=== PATIENT | male | born 1940 | race Caucasian/White ===

== ENCOUNTER 2021-02-09 14:09 | Emergency (ER) | payer MEDICARE, MEDICAID ==
[~2021-02-09] VITALS: Ht 175.3 cm; Wt 102.3 kg
--- NOTE | 2021-02-09 14:37 | NUR ---
Pt was given 50 of Fentanyl by EMS en route to ER. He desaturated to 87% during triage. He was started on 2L of O2. Pt O2 back to 97%. He is A&Ox4.
[2021-02-09] MEDS ORDERED: ondansetron/PF 4mg/2ml inj IV ONE (15:10)
[2021-02-09] MEDS ORDERED: fentaNYL/PF 50MCG/1 ML 2ML syringe IV ONE (15:10)
--- NOTE | 2021-02-09 16:00 | NUR ---
50 of Fentanyl given by RN. Patient reports "some improvement". Pt no longer on NC O2 supply. Oxygen saturation at 97% on RA. Pt A&Ox4.
[2021-02-09] MEDS ORDERED: ONDA4TAB6 PO (16:32)
[2021-02-09] MEDS ORDERED: HYDR-3964 PO (16:32)
[2021-02-09] MEDS ORDERED: METH-797 PO (16:32)
[2021-02-09] MEDS ORDERED: WALKERFR (16:38)
[2021-02-09] MEDS ORDERED: HYDROcodone/acetaminophen 10/325mg tab PO ONE (16:40)
--- NOTE | 2021-02-09 17:51 | NUR ---
[facility] CALLED FOR TRANSPORT, ETA [phone]
[2021-02-09 20:57] VITALS: BP 143/72
== END 2021-02-09 19:33 | disposition home or self-care (01) ==
LOC: ER 14:10
DX: S32.020A Wedge compression fracture of second lumbar vertebra, initial encounter for closed fracture (principal); M25.511 Pain in right shoulder; M25.551 Pain in right hip; W18.39XA Other fall on same level, initial encounter; Y93.89 Activity, other specified; Y92.89 Other specified places as the place of occurrence of the external cause; Y99.8 Other external cause status
CPT/HCPCS: 72131; 72192; 96374; 96375; 99285; J2405; J3010; 96376

== ENCOUNTER 2021-05-06 14:24 | Emergency (ER) | payer MEDICARE, MEDICAID ==
[~2021-05-06] VITALS: Ht 175.3 cm; Wt 104.1 kg
[~2021-05-06 14:24] MED LIST: METH-797 PO; ONDA4TAB6 PO; WALKERFR
[2021-05-06] MEDS ORDERED: HYDROcodone/acetaminophen 10/325mg tab PO ONE ×2 (14:50→15:00)
[2021-05-06] MEDS ORDERED: HYDR-3965 PO (15:26)
[2021-05-06 16:01] VITALS: BP 144/79
== END 2021-05-06 16:43 | disposition home or self-care (01) ==
LOC: ER 14:24
DX: S22.31XA Fracture of one rib, right side, initial encounter for closed fracture (principal); R07.81 Pleurodynia; Z79.899 Other long term (current) drug therapy; W18.30XA Fall on same level, unspecified, initial encounter; Y93.89 Activity, other specified; Y92.89 Other specified places as the place of occurrence of the external cause; Y99.8 Other external cause status
CPT/HCPCS: 71101; 99284

== ENCOUNTER 2021-06-09 17:45 | Inpatient (IN) | payer MEDICARE, MEDICAID ==
[~2021-06-09] VITALS: Ht 175.3 cm; Wt 95.5 kg
[2021-06-09 18:18] LABS: BASOPHILS % (AUTO) 0.2 % (0-1); EOSINOPHILS % (AUTO) 0 % (0-6); LYMPHOCYTES # (AUTO) 0.9 X10'3 (1.1-4.8); LYMPHOCYTES % (AUTO) 13.3 % (21-51); MEAN CORPUSCULAR HEMOGLOBIN 29.9 PG (27.0-31.0); MEAN CORPUSCULAR HGB CONC 32.9 g/dL (33.0-36.5); MEAN CORPUSCULAR VOLUME 90.9 FL (78-98); MEAN PLATELET VOLUME 8.5 FL (7.4-10.4); MONOCYTES # (AUTO) 0.8 X10'3 (0-0.9); MONOCYTES % (AUTO) 11.5 % (2-12); NEUTROPHILS # (AUTO) 5.3 X10'3 (1.8-7.7); PLATELET COUNT 326 X10'3 (140-440); RED CELL DISTRIBUTION WIDTH 14.8 % (11.5-14.5); WHITE BLOOD COUNT 7.1 X10'3 (4.5-11.0)
[2021-06-09 18:24] LABS: HEMATOCRIT 16.4 % (42.0-52.0); HEMOGLOBIN 5.4 g/dl (14.0-17.9)
[2021-06-09] MEDS ORDERED: normal saline 1000ML IV soln IV ONE (18:25)
[2021-06-09] MEDS ORDERED: pantoprazole 40 MG vial IV ONE (18:30)
[2021-06-09 18:35] LABS: ALANINE AMINOTRANSFERASE 28 U/L (12-78); ALBUMIN 2.9 G/DL (3.4-5.0); ALBUMIN/GLOBULIN RATIO 0.8 (1.1-1.5); ALKALINE PHOSPHATASE 100 IU/L (46-116); ANION GAP 12 (8-16); ASPARTATE AMINO TRANSFERASE 40 U/L (10-37); BILIRUBIN,TOTAL 0.5 MG/DL (0.1-1.0); BLOOD UREA NITROGEN 56 MG/DL (7-18); BUN/CREATININE RATIO 43.1 (5.4-32.0); CALCIUM 8.4 MG/DL (8.5-10.1); CHLORIDE 100 MMOL/L (99-107); GLUCOSE 175 MG/DL (70-104); POTASSIUM 3.6 MMOL/L (3.5-5.1); SODIUM 138 MMOL/L (135-145); TOTAL CARBON DIOXIDE 26.4 MMOL/L (24-32); TOTAL PROTEIN 6.5 G/DL (6.4-8.2); eGFR 53 ML/MIN
[2021-06-09] MEDS ORDERED: furosemide 10 MG/1 ML 10ml inj IV ONE (18:45)
[2021-06-09] MEDS ORDERED: furosemide 40mg/4ml inj IV ONE (18:55)
[2021-06-09] MEDS: pantoprazole 40MG/NS 100ML BAG 100 ML IV SCH (18:57)
[2021-06-09 19:33] LABS: CLARITY,URINE CLEAR (Clear); COLOR,URINE YELLOW (Yellow); GLUCOSE, URINE NEGATIVE (Neg); KETONES,URINE NEGATIVE (Neg); LEUKOCYTE ESTERASE ,URINE NEGATIVE (Neg); NITRITES, URINE NEGATIVE (Neg); OCCULT BLOOD,URINE NEGATIVE (Neg); PROTEIN,URINE NEGATIVE (Neg); UA COLLECTION TYPE CLN CATCH MIDSTREAM; UROBILINOGEN,URINE 0.2 E.U/dL (0.2-1.0)
--- NOTE | 2021-06-09 19:43 | NUR ---
FOUNTAIN CATH PLACED. 1900 ML URINE OUT.
[2021-06-09] MEDS ORDERED: potassium Cl 20 mEq SR tablet PO PRN (19:55)
[2021-06-09] MEDS ORDERED: magnesium 4gm in 100ml NS 100 ML IV PRN (19:55)
[2021-06-09] MEDS ORDERED: potassium Cl 40MEQ/1/2NS 520ml 520 ML IV PRN ×2 (19:55)
[2021-06-09] MEDS ORDERED: magnesium 2GM in 50ml NS 50 ML IV PRN (19:55)
[2021-06-09] MEDS ORDERED: magnesium Cl slow-release 64mg tablet PO PRN (19:55)
[2021-06-09] MEDS ORDERED: metoclopramide 5 mg/ml inj IV PRN (19:55)
[2021-06-09] MEDS ORDERED: ondansetron/PF 4mg/2ml inj IV PRN (19:55)
[2021-06-09] MEDS ORDERED: ESOM40CA54 PO (20:05)
[2021-06-09] MEDS ORDERED: DABI150C PO (20:05)
[2021-06-09] MEDS ORDERED: FURO40TA4 PO (20:05)
[2021-06-09] MEDS ORDERED: SITA25TA3 PO (20:05)
[2021-06-09] MEDS ORDERED: HYDR-3972 PO (20:05)
[2021-06-09] MEDS ORDERED: METF-900 PO (20:05)
[2021-06-09] MEDS ORDERED: ROSU10TA28 PO (20:05)
[2021-06-09] MEDS ORDERED: FINA5TAB11 PO (20:05)
[2021-06-09] MEDS ORDERED: CEPH-585 PO (20:05)
[2021-06-09] MEDS ORDERED: HYDR12.55 PO (20:05)
[2021-06-09] MEDS ORDERED: FLO0.4C PO (20:05)
[2021-06-09] MEDS ORDERED: PRAM0.5T12 PO (20:05)
[2021-06-09 20:57] VITALS: BP 125/58
[2021-06-09 21:20] VITALS: BP 121/60
--- NOTE | 2021-06-09 22:40 | NUR ---
PER MD GIVE LASIX DOSE AFTER FIRST UNIT OF BLOOD TRANSFUSED
[2021-06-09 23:38] VITALS: BP 119/61
[2021-06-09] MEDS ORDERED: MESSAGE TO PHARMACY PO ONE (23:40)
[2021-06-09] MEDS ORDERED: dextrose 50%-water 50ml dispensing syringe IV PRN ×2 (23:40)
[2021-06-09] MEDS ORDERED: dextrose ORAL solution 15 GM/59 ML bottle PO PRN ×2 (23:40)
[2021-06-09] MEDS ORDERED: insulin Lispro (HumaLOG) vial - multi-dose SQ SCH (23:40)
[2021-06-09] MEDS ORDERED: glucagon, human recombinant 1mg kit SUBCUT PRN (23:40)
[2021-06-10] VITALS (19 sets, daily range): BP systolic 90–129; BP diastolic 47–80
[2021-06-10] MEDS: normal saline 1000ml 1,000 ML IV SCH ×2 (00:37→08:00)
--- NOTE | 2021-06-10 00:47 | NUR ---
paged pharmacy [phone] Gaetano Vargas: pt came from ED to the floor with no protonix gtt. could you please send up when you get a chance? thank you. mason [phone]
[2021-06-10 01:06] LABS: HEMOGLOBIN A1C 5.8 % (4.5-6.2)
[2021-06-10] MEDS: pantoprazole 40MG/NS 100ML BAG 100 ML IV SCH ×6 (03:37→18:28)
--- NOTE | 2021-06-10 03:40 | NUR ---
Gave 1 u PRBC to pt @ 0140, stayed with pt the first 15 minutes w/out rxn. VSS WNL. Transfusion ended @0340 with no rxn. Last vitals taken were in range an pt had no complaint.
--- NOTE | 2021-06-10 06:35 | NUR ---
Problems reprioritized. Patient report given, questions answered & plan of care reviewed with
[2021-06-10 06:56] LABS: BASOPHILS % (AUTO) 0.4 % (0-1); EOSINOPHILS % (AUTO) 0.2 % (0-6); HEMATOCRIT 22.1 % (42.0-52.0); HEMOGLOBIN 7.8 g/dl (14.0-17.9); LYMPHOCYTES % (AUTO) 12.9 % (21-51); MEAN CORPUSCULAR HEMOGLOBIN 30.3 PG (27.0-31.0); MEAN CORPUSCULAR HGB CONC 35.1 g/dL (33.0-36.5); MEAN CORPUSCULAR VOLUME 86.5 FL (78-98); MEAN PLATELET VOLUME 8.4 FL (7.4-10.4); MONOCYTES # (AUTO) 0.9 X10'3 (0-0.9); NEUTROPHILS % (AUTO) 75.5 % (42-75); PLATELET COUNT 267 X10'3 (140-440); RED BLOOD COUNT 2.56 X10'6 (4.70-6.10); RED CELL DISTRIBUTION WIDTH 15.1 % (11.5-14.5); WHITE BLOOD COUNT 7.9 X10'3 (4.5-11.0)
[2021-06-10 07:12] LABS: ALBUMIN 2.7 G/DL (3.4-5.0); ANION GAP 11 (8-16); BLOOD UREA NITROGEN 39 MG/DL (7-18); BUN/CREATININE RATIO 35.5 (5.4-32.0); CALCIUM 8.4 MG/DL (8.5-10.1); CHLORIDE 105 MMOL/L (99-107); GLUCOSE 117 MG/DL (70-104); MAGNESIUM 1.9 MG/DL (1.5-2.4); POTASSIUM 3.2 MMOL/L (3.5-5.1); SODIUM 143 MMOL/L (135-145); TOTAL CARBON DIOXIDE 27.4 MMOL/L (24-32); eGFR 65 ML/MIN
[2021-06-10] MEDS: K and/or MAG REPLACEMENT MC SCH ×2 (08:00→20:00)
[2021-06-10] MEDS: tamsulosin 0.4mg capsule PO SCH (08:00)
[2021-06-10] MEDS: atorvastatin 20mg tablet PO SCH (08:20)
[2021-06-10] MEDS: finasteride 5mg tablet PO SCH (08:22)
[2021-06-10] MEDS: pramipexole 0.25mg tablet PO SCH ×3 (08:22→21:28)
[2021-06-10] MEDS ORDERED: LIDOcaine Viscous 15ml cup ONE (09:36)
[2021-06-10] MEDS ORDERED: MIDAZolam 1 MG/ML 5ML VIAL ONE (09:36)
[2021-06-10] MEDS ORDERED: fentaNYL/PF 50MCG/1 ML 2ML syringe ONE (09:36)
--- NOTE | 2021-06-10 11:37 | NUR ---
PAGER ID: [phone] MESSAGE: Kaylie [phone] Re: Gaetano [id number] back from GI Lab please call for results Addendum: 06/10/21 at 1154 by Sulma Mike RN Dr Fitzpatrick called back aware of EGD results. Received orders for Clear diet no reds and continue Protonix gtt./
--- NOTE | 2021-06-10 15:00 | NUR ---
Spoke to patients gregg Booth regarding who patient lives with and if anyone could come and see patient because he was feeling lonely. Patients son stated patient has been falling alot at home and his room mate is 80 years old and unable to help take care of patient. Patient also has an [facility] worker Sissy but they can not stay 24/7 and patient has been having alot of falls and the fire department has been contacted often to help assist patient back into wheelchair. Contacted patients donn Verde and she states that she has been in contact with Dr Cole office and his office manager receptionist Estella about getting patient to [facility]. The referral was sent to [facility] last week and the daughter Mehreen was just notified they should have a bed for the patient. Donn Heard has been in contact with Margarita Flowers the Liason at [facility]. I notified Nancy our leather case finisher and she will contact Margarita tomorrow.
--- NOTE | 2021-06-10 16:42 | NUR ---
Left message on voicemail for wound care consult
--- NOTE | 2021-06-10 18:22 | NUR ---
Problems reprioritized. Patient report given, questions answered & plan of care reviewed with Gayatri MATHIS.
--- NOTE | 2021-06-10 18:46 | NUR ---
Patient in room PCU 3016J. I have received report from Sulma and had the opportunity to ask questions and assume patient care.
[2021-06-10] MEDS: insulin glargine (Lantus) pen - multi-dose SQ SCH (21:00)
[2021-06-11] MEDS: normal saline 1000ml 1,000 ML IV SCH ×2 (00:12→22:00)
[2021-06-11 02:00] VITALS: BP 121/73
[2021-06-11 06:00] VITALS: BP 128/60
--- NOTE | 2021-06-11 06:51 | NUR ---
Problems reprioritized. Pt took out IV's and leads and will need another IV to cont. IVF. Patient report given, questions answered & plan of care reviewed with Shewit.
[2021-06-11] MEDS: atorvastatin 20mg tablet PO SCH (07:24)
[2021-06-11] MEDS: finasteride 5mg tablet PO SCH (07:24)
[2021-06-11] MEDS: pramipexole 0.25mg tablet PO SCH ×2 (07:24→21:51)
[2021-06-11] MEDS: tamsulosin 0.4mg capsule PO SCH (07:24)
[2021-06-11 07:31] LABS: BASOPHILS % (AUTO) 0.4 % (0-1); EOSINOPHILS % (AUTO) 0.5 % (0-6); HEMATOCRIT 24.1 % (42.0-52.0); LYMPHOCYTES # (AUTO) 0.8 X10'3 (1.1-4.8); LYMPHOCYTES % (AUTO) 9.9 % (21-51); MEAN CORPUSCULAR HEMOGLOBIN 29.4 PG (27.0-31.0); MEAN CORPUSCULAR VOLUME 89.1 FL (78-98); MEAN PLATELET VOLUME 8.4 FL (7.4-10.4); MONOCYTES # (AUTO) 0.8 X10'3 (0-0.9); NEUTROPHILS # (AUTO) 6.6 X10'3 (1.8-7.7); NEUTROPHILS % (AUTO) 79.2 % (42-75); PLATELET COUNT 277 X10'3 (140-440); RED BLOOD COUNT 2.71 X10'6 (4.70-6.10); RED CELL DISTRIBUTION WIDTH 15.8 % (11.5-14.5); WHITE BLOOD COUNT 8.3 X10'3 (4.5-11.0)
[2021-06-11 08:20] LABS: ALBUMIN 2.5 G/DL (3.4-5.0); ANION GAP 9 (8-16); BLOOD UREA NITROGEN 21 MG/DL (7-18); BUN/CREATININE RATIO 23.1 (5.4-32.0); CALCIUM 8.1 MG/DL (8.5-10.1); CHLORIDE 106 MMOL/L (99-107); CREATININE 0.91 MG/DL (0.60-1.10); GLUCOSE 117 MG/DL (70-104); MAGNESIUM 1.7 MG/DL (1.5-2.4); SODIUM 141 MMOL/L (135-145); TOTAL CARBON DIOXIDE 25.7 MMOL/L (24-32); eGFR 81 ML/MIN
[2021-06-11] MEDS: potassium Cl 20 mEq SR tablet PO PRN ×2 (09:32→11:00)
[2021-06-11 11:00] VITALS: BP 128/60
--- NOTE | 2021-06-11 16:49 | NUR ---
DR. ARMANDO paged regarding , patient name Sam Salter in PCU room 15 B , is still not discharged , we don't know where to send him , nothing is known about his living situationl. nursing home social worker has to work on that. he is confused and yelling loud. DELFINA ROMERO. [phone]
[2021-06-11 18:00] VITALS: BP 138/65
[2021-06-11] MEDS: K and/or MAG REPLACEMENT MC SCH (20:00)
[2021-06-11] MEDS: insulin glargine (Lantus) pen - multi-dose SQ SCH (21:00)
[2021-06-11 22:00] VITALS: BP 152/74
[2021-06-12 02:00] VITALS: BP 144/71
--- NOTE | 2021-06-12 06:30 | NUR ---
Pt refused VS check
--- NOTE | 2021-06-12 06:50 | NUR ---
Patient in room PCU 3015. I have received report from DELFINA Haskins and had the opportunity to ask questions and assume patient care.
[2021-06-12 07:37] LABS: BASOPHILS % (AUTO) 0.2 % (0-1); EOSINOPHILS % (AUTO) 0.6 % (0-6); HEMATOCRIT 26.8 % (42.0-52.0); HEMOGLOBIN 9.2 g/dl (14.0-17.9); LYMPHOCYTES # (AUTO) 0.7 X10'3 (1.1-4.8); LYMPHOCYTES % (AUTO) 7.7 % (21-51); MEAN CORPUSCULAR HEMOGLOBIN 30.4 PG (27.0-31.0); MEAN CORPUSCULAR HGB CONC 34.2 g/dL (33.0-36.5); MEAN CORPUSCULAR VOLUME 88.9 FL (78-98); MEAN PLATELET VOLUME 8.6 FL (7.4-10.4); MONOCYTES # (AUTO) 0.8 X10'3 (0-0.9); MONOCYTES % (AUTO) 9.4 % (2-12); NEUTROPHILS # (AUTO) 7.2 X10'3 (1.8-7.7); NEUTROPHILS % (AUTO) 82.1 % (42-75); PLATELET COUNT 287 X10'3 (140-440); RED BLOOD COUNT 3.02 X10'6 (4.70-6.10); RED CELL DISTRIBUTION WIDTH 16.4 % (11.5-14.5); WHITE BLOOD COUNT 8.7 X10'3 (4.5-11.0)
[2021-06-12 07:49] LABS: ALBUMIN 2.5 G/DL (3.4-5.0); ANION GAP 11 (8-16); BLOOD UREA NITROGEN 15 MG/DL (7-18); BUN/CREATININE RATIO 22.1 (5.4-32.0); CALCIUM 8.8 MG/DL (8.5-10.1); CHLORIDE 105 MMOL/L (99-107); CREATININE 0.68 MG/DL (0.60-1.10); GLUCOSE 118 MG/DL (70-104); MAGNESIUM 1.7 MG/DL (1.5-2.4); POTASSIUM 3.8 MMOL/L (3.5-5.1); SODIUM 141 MMOL/L (135-145); TOTAL CARBON DIOXIDE 25.5 MMOL/L (24-32); eGFR > 90 ML/MIN
[2021-06-12] MEDS: K and/or MAG REPLACEMENT MC SCH ×2 (08:00→20:00)
[2021-06-12] MEDS ORDERED: pantoprazole 40 MG vial IV SCH (09:00)
[2021-06-12 11:00] VITALS: BP 143/72
[2021-06-12] MEDS: tamsulosin 0.4mg capsule PO SCH (11:10)
[2021-06-12] MEDS: pantoprazole 40mg Tablet.DR PO SCH ×2 (11:11→21:12)
[2021-06-12] MEDS: finasteride 5mg tablet PO SCH (11:11)
[2021-06-12] MEDS: atorvastatin 20mg tablet PO SCH (11:11)
[2021-06-12] MEDS: pramipexole 0.25mg tablet PO SCH ×3 (11:11→21:13)
[2021-06-12 15:00] VITALS: BP 134/79
[2021-06-12 18:00] VITALS: BP 113/72
--- NOTE | 2021-06-12 18:20 | NUR ---
Problems reprioritized. Patient report given, questions answered & plan of care reviewed with DELFINA Arita.
[2021-06-12] MEDS: insulin glargine (Lantus) pen - multi-dose SQ SCH (21:00)
[2021-06-12 22:00] VITALS: BP 129/51
[2021-06-13 02:00] VITALS: BP 138/72
--- NOTE | 2021-06-13 03:44 | NUR ---
reviewed and edited SRN assessment
--- NOTE | 2021-06-13 06:23 | NUR ---
Problems reprioritized. Patient report given, questions answered & plan of care reviewed with DELFINA Velez.
[2021-06-13 06:30] LABS: BASOPHILS % (AUTO) 0.2 % (0-1); EOSINOPHILS # (AUTO) 0.1 X10'3 (0-0.9); EOSINOPHILS % (AUTO) 1.4 % (0-6); HEMATOCRIT 27.2 % (42.0-52.0); HEMOGLOBIN 9.1 g/dl (14.0-17.9); LYMPHOCYTES # (AUTO) 0.7 X10'3 (1.1-4.8); LYMPHOCYTES % (AUTO) 13.4 % (21-51); MEAN CORPUSCULAR HEMOGLOBIN 29.6 PG (27.0-31.0); MEAN CORPUSCULAR HGB CONC 33.4 g/dL (33.0-36.5); MEAN CORPUSCULAR VOLUME 88.5 FL (78-98); MEAN PLATELET VOLUME 8.4 FL (7.4-10.4); MONOCYTES # (AUTO) 0.6 X10'3 (0-0.9); MONOCYTES % (AUTO) 11.6 % (2-12); NEUTROPHILS # (AUTO) 3.8 X10'3 (1.8-7.7); NEUTROPHILS % (AUTO) 73.4 % (42-75); PLATELET COUNT 281 X10'3 (140-440); RED BLOOD COUNT 3.08 X10'6 (4.70-6.10); RED CELL DISTRIBUTION WIDTH 16.2 % (11.5-14.5); WHITE BLOOD COUNT 5.1 X10'3 (4.5-11.0)
--- NOTE | 2021-06-13 06:30 | NUR ---
Patient in room PCU 3015. I have received report from TRACEY MATHIS and had the opportunity to ask questions and assume patient care.
[2021-06-13 06:52] LABS: ALBUMIN 2.2 G/DL (3.4-5.0); ANION GAP 12 (8-16); BLOOD UREA NITROGEN 12 MG/DL (7-18); CALCIUM 8.4 MG/DL (8.5-10.1); CHLORIDE 104 MMOL/L (99-107); CREATININE 0.63 MG/DL (0.60-1.10); GLUCOSE 105 MG/DL (70-104); MAGNESIUM 1.7 MG/DL (1.5-2.4); POTASSIUM 3.4 MMOL/L (3.5-5.1); SODIUM 141 MMOL/L (135-145); TOTAL CARBON DIOXIDE 25.5 MMOL/L (24-32); eGFR > 90 ML/MIN
[2021-06-13] MEDS: tamsulosin 0.4mg capsule PO SCH (07:48)
[2021-06-13] MEDS: pantoprazole 40mg Tablet.DR PO SCH ×2 (07:48→20:34)
[2021-06-13] MEDS: atorvastatin 20mg tablet PO SCH (07:48)
[2021-06-13] MEDS: finasteride 5mg tablet PO SCH (07:49)
[2021-06-13] MEDS: pramipexole 0.25mg tablet PO SCH ×3 (07:49→20:33)
[2021-06-13] MEDS: K and/or MAG REPLACEMENT MC SCH ×2 (08:00→18:43)
[2021-06-13] MEDS ORDERED: potassium Cl 40MEQ/1/2NS 520ml 520 ML IV PRN (10:40)
[2021-06-13] MEDS ORDERED: magnesium 4gm in 100ml NS 100 ML IV PRN (10:40)
[2021-06-13] MEDS ORDERED: potassium Cl 20 mEq SR tablet PO PRN (10:40)
[2021-06-13 11:00] VITALS: BP 134/66
--- NOTE | 2021-06-13 13:41 | NUR ---
DR. ARMANDO PAGED: Sam Avila [phone]: PT REQUESTING TYLENOL FOR LOW BACK PAIN. MY I GET AN ORDER? THANKS [id number]
[2021-06-13] MEDS ORDERED: acetaminophen 325mg tablet PO PRN (13:45)
[2021-06-13 15:00] VITALS: BP 122/66
[2021-06-13 18:00] VITALS: BP 141/69
--- NOTE | 2021-06-13 18:07 | NUR ---
Problems reprioritized. Patient report given, questions answered & plan of care reviewed with TRACEY MATHIS.
[2021-06-13] MEDS: potassium Cl 20 mEq SR tablet PO PRN (20:33)
[2021-06-13 22:00] VITALS: BP 135/73
[2021-06-14 02:00] VITALS: BP 125/72
[2021-06-14 06:00] VITALS: BP 141/45
--- NOTE | 2021-06-14 06:11 | NUR ---
Problems reprioritized. Patient report given, questions answered & plan of care reviewed with DELFINA Melgar.
[2021-06-14 07:10] LABS: BASOPHILS % (AUTO) 0.4 % (0-1); EOSINOPHILS # (AUTO) 0.1 X10'3 (0-0.9); HEMATOCRIT 27.7 % (42.0-52.0); HEMOGLOBIN 9.1 g/dl (14.0-17.9); LYMPHOCYTES # (AUTO) 0.6 X10'3 (1.1-4.8); LYMPHOCYTES % (AUTO) 14.2 % (21-51); MEAN CORPUSCULAR HGB CONC 32.8 g/dL (33.0-36.5); MEAN CORPUSCULAR VOLUME 88.6 FL (78-98); MEAN PLATELET VOLUME 8.4 FL (7.4-10.4); MONOCYTES # (AUTO) 0.5 X10'3 (0-0.9); MONOCYTES % (AUTO) 12.5 % (2-12); NEUTROPHILS % (AUTO) 70.9 % (42-75); PLATELET COUNT 293 X10'3 (140-440); RED BLOOD COUNT 3.13 X10'6 (4.70-6.10); RED CELL DISTRIBUTION WIDTH 16.6 % (11.5-14.5); WHITE BLOOD COUNT 4.3 X10'3 (4.5-11.0)
[2021-06-14 07:24] LABS: ALBUMIN 2.2 G/DL (3.4-5.0); ANION GAP 11 (8-16); BLOOD UREA NITROGEN 10 MG/DL (7-18); BUN/CREATININE RATIO 13.5 (5.4-32.0); CALCIUM 8.2 MG/DL (8.5-10.1); CHLORIDE 103 MMOL/L (99-107); CREATININE 0.74 MG/DL (0.60-1.10); GLUCOSE 108 MG/DL (70-104); MAGNESIUM 1.4 MG/DL (1.5-2.4); POTASSIUM 3.7 MMOL/L (3.5-5.1); SODIUM 141 MMOL/L (135-145); TOTAL CARBON DIOXIDE 27.1 MMOL/L (24-32); eGFR > 90 ML/MIN
[2021-06-14] MEDS: K and/or MAG REPLACEMENT MC SCH ×2 (08:00→20:00)
[2021-06-14] MEDS: atorvastatin 20mg tablet PO SCH (08:31)
[2021-06-14] MEDS: pantoprazole 40mg Tablet.DR PO SCH ×2 (08:31→20:23)
[2021-06-14] MEDS: finasteride 5mg tablet PO SCH (08:31)
[2021-06-14] MEDS: tamsulosin 0.4mg capsule PO SCH (08:31)
[2021-06-14] MEDS: pramipexole 0.25mg tablet PO SCH ×3 (08:31→20:25)
[2021-06-14] MEDS: magnesium Cl slow-release 64mg tablet PO PRN ×2 (09:46→20:25)
--- NOTE | 2021-06-14 10:16 | NUR ---
Initial: Pt admitted w/ increasing weakness and s/p falls per EMR. Pt noted to have undergone EGD w/ findings of hiatal hernia and duodenal ulcer. Pt currently on Clear liquid diet w/ 100% intake on 06/11 though mostly refusing now. D/w RN about advancing diet to Regular if MD agreeable. Pt also noted w/ 2x2cm stage 3 wound on sacrococcygeal region. LBM 06/12. Limited nutrition interventions at this time given diet order, will continue to monitor and make recommendations as appropriate. Recs: 1. Advance to Regular diet if MD agreeable 2. When diet advanced to at least full liquids, Fabian shake BID BD 3. Monitor need for additional ONS once diet advances 4. Bowel care per rx 5. Weekly wts Addendum: 06/14/21 at [address] Amended: Links added.
--- NOTE | 2021-06-14 11:05 | NUR ---
PT REMOVED FOUNTAIN CATH. PT REFUSING TO HAVE NEW CATH PLACED AT THIS TIME. PT GIVEN URINAL AND TOLD TO URINATE INTO IT IF THEY FEEL THE NEED. WILL CONTINUE TO MONITOR.
--- NOTE | 2021-06-14 12:41 | NUR ---
DR. ARMANDO PAGED: Sam Marvin [phone]: CAN WE UPGRADE HIS DIET FROM CLEAR LIQUID? THANKS [phone]
[2021-06-14 15:00] VITALS: BP 122/62
[2021-06-14 18:00] VITALS: BP 143/77
--- NOTE | 2021-06-14 18:32 | NUR ---
Problems reprioritized. Patient report given, questions answered & plan of care reviewed with LENO MATHIS.
--- NOTE | 2021-06-14 21:30 | NUR ---
Pt has not voided since starting my shift. Urinal at bedside with verbal instructions to use it when having the urge to void. Pt refusing bladder scan to check for retention. pt is confused ; continue to reorient him and encourage him to stay in bed. Bed alarm in use.
[2021-06-14 22:00] VITALS: BP 102/66
--- NOTE | 2021-06-14 22:24 | NUR ---
Attempted to place the giron post bladder scan with urine retention of 696 ml; pt agitated and refused. Pt said no and that he will urinate. Pt reported that it hurts too much last time. Will continue to encourage pt to void.
--- NOTE | 2021-06-14 22:54 | NUR ---
Stage 2 noted to right gluteal fold; dressing clean and intact. Pt turns side to side PRN.
[2021-06-15 03:13] VITALS: BP 143/65
--- NOTE | 2021-06-15 03:29 | NUR ---
Pt still not voiding, continues to refuse Rick catheter to be inserted. Stand pt by the bed urinal in place, encourage pt to void.Still no urine
[2021-06-15 06:00] VITALS: BP 131/77
[2021-06-15 07:55] LABS: MAGNESIUM 1.6 MG/DL (1.5-2.4); POTASSIUM 3.1 MMOL/L (3.5-5.1)
[2021-06-15] MEDS: K and/or MAG REPLACEMENT MC SCH (08:00)
[2021-06-15] MEDS: finasteride 5mg tablet PO SCH (09:07)
[2021-06-15] MEDS: pramipexole 0.25mg tablet PO SCH ×2 (09:07→13:08)
[2021-06-15] MEDS: atorvastatin 20mg tablet PO SCH (09:07)
[2021-06-15] MEDS: pantoprazole 40mg Tablet.DR PO SCH (09:07)
[2021-06-15] MEDS: tamsulosin 0.4mg capsule PO SCH (09:07)
[2021-06-15] MEDS: potassium Cl 20 mEq SR tablet PO PRN (09:07)
[2021-06-15 11:00] VITALS: BP 127/64
[2021-06-15] MEDS ORDERED: LIDOcaine 2% 10ml TOPICAL JELLY (Urojet) MM ONE (12:35)
[2021-06-15 15:00] VITALS: BP 130/89
--- NOTE | 2021-06-15 15:56 | NUR ---
REPORT GIVEN TO BIRGIT MATHIS AT [facility]. AWAITING TRANSPORTATION.
--- NOTE | 2021-06-15 16:30 | NUR ---
PT TRANSFERRED TO [facility] AT 1630.
== END 2021-06-15 16:05 | DRG 377 ==
LOC: ER 17:46 → ED HOLD 19:58 → PCU 3S 06-10 00:01
PROVIDERS: ADMIT Internal Medicine; ATTEND Family Medicine
PROC: 30233N1 Transfusion of Nonautologous Red Blood Cells into Peripheral Vein, Percutaneous Approach (ICD-10-PCS; principal; 2021-06-09)
PROC: 0DB98ZX Excision of Duodenum, Via Natural or Artificial Opening Endoscopic, Diagnostic (ICD-10-PCS; 2021-06-10)
DX: K29.71 Gastritis, unspecified, with bleeding (principal); N17.0 Acute kidney failure with tubular necrosis; D50.0 Iron deficiency anemia secondary to blood loss (chronic); E11.9 Type 2 diabetes mellitus without complications; E87.6 Hypokalemia; Z20.822 Contact with and (suspected) exposure to COVID-19; R29.6 Repeated falls; K31.89 Other diseases of stomach and duodenum; K44.9 Diaphragmatic hernia without obstruction or gangrene; E78.5 Hyperlipidemia, unspecified; F03.90 Unspecified dementia, unspecified severity, without behavioral disturbance, psychotic disturbance, mood disturbance, and anxiety; I10 Essential (primary) hypertension; I48.91 Unspecified atrial fibrillation; N40.0 Benign prostatic hyperplasia without lower urinary tract symptoms; Z60.2 Problems related to living alone; Z79.01 Long term (current) use of anticoagulants; Z79.84 Long term (current) use of oral hypoglycemic drugs; Z86.12 Personal history of poliomyelitis; Z91.81 History of falling
CPT/HCPCS: 36415; 36430; 43239; 70450; 71045; 74176; 80048; 80053; 81003; 82948; 83036; 83735; 83880; 84132; 84484; 85025; 86885; 86900; 86901; 86920; 87081; 87635; 88305; 93005; 96374; 97110; 97116; 97162; 97530; 99152; 99285; A4620; C9113; G0378; J1815; J1940; J2250; J3010; J3480; J7030; J7040; P9016